=== PATIENT | male | born 1985 | race Caucasian/White ===

== ENCOUNTER 2020-05-22 10:20 | Emergency (ER) | payer SELFPAY ==
[2020-05-22 10:25] VITALS: BP 130/78; PULSE 59; TEMP 98.5; BMI 23.6
[2020-05-22] MEDS ORDERED: KETOROLAC TROMETHAMINE 60 MG/2 ML VIAL ONE (10:49)
[2020-05-22] MEDS ORDERED: IBUPROFEN 600 MG TABLET (FP) PO ONE ×2 (11:48→11:49)
== END 2020-05-22 12:24 | disposition home or self-care (01) ==
LOC: FER 10:20
PROC: 3E0233Z Introduction of Anti-inflammatory into Muscle, Percutaneous Approach (ICD-10-PCS; principal; 2020-05-22)
DX: M54.6 Pain in thoracic spine (principal); S29.011A Strain of muscle and tendon of front wall of thorax, initial encounter
CPT/HCPCS: 71046-TC-FY; 99284-25

== ENCOUNTER 2022-04-26 14:51 | Emergency (ER) | payer OTHER ==
[2022-04-26 15:01] VITALS: BP 119/70; PULSE 64; RESP 18; TEMP 97.8; BMI 24.5
[2022-04-26] MEDS ORDERED: KETOROLAC TROMETHAMINE 30 MG/1 ML VIAL IM ONE (15:08)
[2022-04-26] MEDS ORDERED: KETOROLAC TROMETHAMINE 30 MG/1 ML VIAL ONE (15:37)
[2022-04-26 15:52] LABS: HEMATOCRIT 42.5 % (35.4-49); HEMOGLOBIN 14.6 G/dL (11.7-16.9); MCH 30.7 pg (25.7-33.7); MCHC 34.3 g/dl (32.0-35.9); MEAN CELL VOLUME 89.4 fl (80-96); MEAN PLT VOLUME 8.1 fl (7.5-11.1); PLATELET COUNT 181.5 10^3/uL (134-434); RBC 4.75 10^6/uL (4.00-5.60); RDW 14.7 % (11.9-15.9); WHITE BLOOD COUNT 6.3 10^3/uL (4.0-10.8)
[2022-04-26 16:04] LABS: ALBUMIN 4.2 g/dl (3.4-5.0); BILIRUBIN,TOTAL 0.7 mg/dl (0.2-1); CALCIUM 9.5 mg/dl (8.5-10); TOT PROT 6.5 g/dl (6.4-8.2)
[2022-04-26 16:12] LABS: PLATELET ESTIMATE ADEQUATE
== END 2022-04-26 16:42 | disposition home or self-care (01) ==
LOC: FER 14:51
PROC: 3E023GC Introduction of Other Therapeutic Substance into Muscle, Percutaneous Approach (ICD-10-PCS; principal; 2022-04-26)
DX: R07.9 Chest pain, unspecified (principal)
CPT/HCPCS: 0241U-QW; 36415; 71046-TC-FY; 80053; 84484; 85027; 93005; 99285-25